=== PATIENT | female | born 1975 | race Two or more races ===

== ENCOUNTER 2018-12-05 19:51 | Emergency (ER) | payer MEDICAID, SELFPAY ==
[2018-12-05] MEDS: 0.9% Normal Saline 1,000 ML 1000 ML IV (20:20)
[2018-12-05] MEDS: Ondansetron 4 MG/2 ML Vial IV (20:22)
[2018-12-05] MEDS: Morphine 4 MG/ML Syringe IV (20:22)
[2018-12-05 20:40] VITALS: PULSE 85; RESP 18; TEMP 37.1; O2SAT 98; BMI 24.7
[2018-12-05 20:47] LABS: Absolute Lymphocyte Count 2.16 X10^3/ul (0.83-4.51); Absolute Neutrophil Count 8.2 X10^3/uL (2.0-7.7); Basophil# 0.01 X10^3/uL; Basophil% 0.1 % (0-1); Eosinophil# 0.04 X10^3/uL; Eosinophils% 0.4 % (0-5); Hematocrit 40.1 % (37-47); Hemoglobin 13.4 g/dl (12.0-15.0); Lymphocyte # 2.16 X10^3/ul (4.0); Lymphocyte % 19.9 % (19-41); Mean Corp Hgb Conc 33.4 g/gl (32-36); Mean Corpuscular Hgb 31.5 pg (27.0-32.0); Mean Corpuscular Volume 94.1 fL (81-99); Mean Platelet Vol. 11.8 fl (6.2-12.0); Monocyte# 0.46 X10^3/uL; Monocyte% 4.2 % (0-10); Neutrophil # 8.17 X10^3/uL (2.7-7.7); Neutrophil % 75.1 % (47-70); POSITIVE COUNT NO; POSITIVE DIFFERENTIAL NO; POSITIVE MORPHOLOGY NO; Platelet Count 197 K/mm3 (150-450); RBC Distribution Width CV 12.7 % (11.6-14.6); RBC Distribution Width SD 43.1 fl (35.1-43.9); Red Blood Count 4.26 M/mm3 (4.2-5.4); White Blood Count 10.9 K/mm3 (4.4-11.0)
--- NOTE | 2018-12-05 20:55 | ED.VISSUMM ---
- ER Visit Summary Date of Service: 12/05/18 Chief Complaint: Vaginal bleeding History of Present Illness: The patient is a 44 F who speaks only Japanese. All conversation is through an seismic interpreter. However, there is still a language barrier present. She reports that she has vaginal bleeding that began 3 days ago. However, it became much more heavy tonight at work. She complains of an aching suprapubic pain that is 10 out of 10 in severity. It is worsened by nothing and relieved by nothing. Patient reports that she is a and her last menstrual period was 3 months ago. She does report that she has a housekeeper cleaning cooking. However I am unable to obtain this person's name. Physical Examination: Vitals: Stable. Afebrile. General: Well-nourished and well-developed. Head: Normocephalic atraumatic. Neck: Supple, no lymphadenopathy. No JVD. Nontender. Cardiovascular: Regular rate and rhythm. No murmurs. Respiratory: No respiratory distress. Clear to auscultation bilaterally. Abdominal: Soft, moderate suprapubic tenderness to palpation, nondistended, normal bowel sounds. No guarding, rebound, or peritoneal signs. Back: Nontender. Extremities: Nontender, no edema. Skin: Normal color, no rash. Neurologic: Alert and oriented ?3. Cranial nerves II through XII are intact. Normal strength and sensation. Psych: Normal affect. Test Results: CBC is remarkable for an H&H of 13.4 and 40.1. Segmented neutrophils are 75. Blood type is B+. Quant is 2466. Transvaginal ultrasound shows no intrauterine . No gestational sac. Normal adnexa bilaterally. Emergency Department Course and Treatment: Patient had an IV placed. She was given a liter of normal saline. She was given a dose of morphine IV. She is resting comfortably. Treatment Plan: The patient was discussed with Dr. Price. She reports that there office does have access to a Japanese pensionholder information clerk and that they will call the patient tomorrow and set up follow-up. I discussed this with the patient. She actually has coworkers with her now who speak Czech. She lives in [place]. I gave her a printout of her labs and her ultrasound. I have instructed her that she needs to get a repeat quant in 2 days and that if this is decreasing then she has had a miscarriage. If it is staying the same or increasing then she may have an ectopic and will require an ultrasound. She does understand this per seismic interpreter. Disposition: To home in improved and stable condition. Impression: 1. Vaginal bleeding. 2. . This note was generated with [employer] software. It may contain incorrect words, spelling, and punctuation that were not noted in review of the chart prior to signing ED Disposition - Plan for ED Patient: Chief Complaint: Vag Bleeding Instructions: ED Miscarriage Inevitable Referrals: Romina Price [STAFF PHYSICIAN] - 2 Days
[2018-12-05 21:00] LABS: Anion Gap 9 (5-15); BUN 15 mg/dL (7-18); BUN/Creat Ratio 21.7 RATIO (10-20); Calcium,Total 9.2 mg/dL (8.5-10.1); Chloride 106 mmol/L (98-107); Creatinine, Serum 0.69 mg/dL (0.55-1.02); Estimated Creatinine Clearance 76.29 ml/min; Glucose 120 mg/dL (74-106); Potassium 3.5 mmol/L (3.5-5.1); Sodium Level 139 mmol/L (136-145)
--- NOTE | 2018-12-05 21:12 | US_ITS ---
STUDY: FIRST TRIMESTER OBSTETRICAL ULTRASOUND REASON FOR EXAM: Female, 43 years old. Bleeding and cramping LMP: Unknown TECHNIQUE: Transabdominal and Transvaginal TECHNICAL QUALITY: Adequate. PRIOR ULTRASOUND: None. FINDINGS: No gestational sac visualized. The endometrium measures 16 mm. It appears heterogeneous. No retained products noted. The uterus measures 8.3 x 6.1 x 5 cm. There is no demonstrated uterine fibroid. The cervix is closed. The right ovary measures 2.6 x 1.5 x 1.3 cm. There is no right ovarian cyst. There is no visualized right adnexal mass or complex lesion. The left ovary measures 2.4 x 1.6 x 1.2 cm. There is no left ovarian cyst. There is no visualized left adnexal mass or complex lesion. There is no fluid in the cul de sac. US/Transvaginal w/Preg US IMPRESSION: No intrauterine . Differential considerations include early intrauterine , missed AB, or ectopic . Close surveillance required. Electronically Signed: Ernie Hernandez MD at 22:50 EST , Service support ,
[2018-12-05 21:45] LABS: Pregnancy, Serum, hCG Quali. POSITIVE Negative (0-9 Nonpreg)
[2018-12-05 21:47] LABS: hCG Titer Quant., Serum 2466 mIU/mL (<9 non-preg)
[2018-12-05] MEDS: Ibuprofen 200 MG Tablet 400 MG PO (23:46)
[2018-12-05 23:47] VITALS: RESP 18; O2SAT 98
--- OUTSIDE RECORDS SUMMARY | 2019-02-09 12:52 | XMS RPT_ITS ---
:1975 Author Organization OHIP Care Team Providers Name Role Phone Katelin Motnejo Referring Unavailable Nikia, Katelin Primary Care Unavailable Kin, Isac Attending Unavailable Nikia, Katelin Attending Unavailable Nikia, Katelin Referring Unavailable Nikia, Katelin Primary Care Unavailable Nikia, Katelin Attending Unavailable Nikia, Katelin Referring Unavailable Nikia, Katelin Primary Care Unavailable NikiaKatelin Attending Unavailable Nikia, Katelin Referring Unavailable Nikia, Katelin Primary Care Unavailable Raj Jo Attending Unavailable Primay Care Physicia, No Primary Care Unavailable PROBLEMS PROBLEMS DATE TYPE CONDITION / CODE ATTENDING STATUS SOURCE 12/06/2018 Admitting Complete or unsp Kin, Active [facility] Diagnosis spontaneous Isac System without complication Repository / O03.9(ICD-10) 12/06/2018 Admitting Other chronic pain / Kin, Active [facility] Diagnosis G89.29(ICD-10) [facility] System Repository 12/06/2018 Admitting Low back pain / Kin, Active [facility] Diagnosis M54.5(ICD-10) [facility] System Repository 12/06/2018 Admitting Essential (primary) Kin, Active [employer] Diagnosis hypertension / [facility] System I10(ICD-10) Repository 12/06/2018 Admitting Personal history of Kin, Active [employer] Diagnosis nicotine dependence / [facility] System Z87.891(ICD-10) Repository 12/06/2018 Admitting Oth related Kin, [employer] Diagnosis conditions, Isac System unspecified trimester Repository / O26.899(ICD-10) 04/25/2018 Admitting Chest pain, Katelin Montejo Active [employer] Diagnosis unspecified / System R07.9(ICD-10) Repository 01/15/2018 Admitting Other disturbances of Katelin Montejo Active [employer] Diagnosis skin sensation / System R20.8(ICD-10) Repository 01/15/2018 Admitting Encounter for Katelin Montejo [employer] Diagnosis screening for human System immunodeficiency Repository virus / Z11.4(ICD-10) 01/15/2018 Admitting Encounter for Kaetlin Montejo [employer] Diagnosis screening for lipoid System disorders / Repository Z13.220(ICD-10) PROCEDURES PROCEDURES No Procedure Records FoundRESULTS RESULTS US Observed: 12/06/2018 Status: F Source: [facility] TRANSVAGINAL 11:34 AM SYSTEM REPOSITORY Patient Name: GELACIO BALDERAS Ultrasound Exam Date/Time 12/06/2018 11:09:48 EST Exam US Transvaginal Ordering Physician MARIA L VU LAURA Accession Number [id number] CPT4 Codes 34896 () Reason For Exam threatened AB Report Indication: Threatened . Vaginal bleeding and . FINDINGS: Transvaginal sonography performed. Uterus measures 10.1 x 4.2 x 5.8 cm, anteverted. No intrauterine visualized. Enlarged heterogeneous endometrium 18 mm. No free fluid. Both ovaries have Doppler flow signal. No ovarian mass. Right ovary 2.9 x 1.8 x 1.1 cm and left ovary 1.9 x 1.0 x 1.8 cm. IMPRESSION: Enlarged 13 mm endometrium. No definite intrauterine . Please correlate with laboratory values. This patient may require follow-up or further evaluation depending on the clinical setting. Report Dictated on Final Dictated: 12/06/2018 11:34 am Dictating Physician: MD TORRES JOHN Signed Date and Time: 12/06/2018 11:35 am Signed by: MD TORRES JOHN Transcribed Date and Time: 12/06/2018 11:34 HEMOGRAM W/ AUTODIFF Collected: 12/06/2018 Status: F Source: [facility] 9:55 AM SYSTEM REPOSITORY TYPE CODE TESTS RESULT OUT OF REFERENCE UNITS RANGE LAB IWBC 3.6-10.7 10*3/uL WBC Normal 7.0 LAB RBC 3.80-5.20 10*6/uL RBC Normal 3.94 LAB HGB 11.7-16.0 g/dL Hemoglobin Normal 12.6 LAB HCT 35.0-47.0 % Hematocrit Normal 37.1 LAB MCV 79.0-98.0 fL MCV Normal 94.2 LAB MCH 26.0-34.0 pg MCH Normal 32.0 LAB MCHC 32.0-36.0 % MCHC Normal 34.0 LAB RDW 11.5-14.5 % RDW Normal 13.1 LAB PLT 140-440 10*3/uL Platelet Normal 185 LAB MPV 7.4-10.4 fL MPV High 10.5 LAB GRAN% 40.0-80.0 % Granulocytes Normal 60.0 LAB LYMP% 20.0-40.0 % Lymphocytes Normal 34.7 LAB MONO% 2.0-10.0 % Monocytes Normal 4.2 LAB EOS% 1.0-6.0 % Low Eosinophils 0.6 LAB BAS% 0.0-2.0 % Basophils Normal 0.5 LAB ANC 1.8-7.0 10*3/uL Abs Normal Neutrophile Cnt 4.2 LAB ALC 1.0-4.3 10*3/uL Abs Lymph Cnt Normal 2.4 LAB AMC 0.0-0.8 10*3/uL Abs Monocyte Normal Cnt 0.3 LAB AEC 0.0-0.5 10*3/uL Abs Eosin Cnt Normal 0.0 LAB ABC 0.0-0.2 10*3/uL Abs Baso Cnt Normal 0.0 Performed By: #### HEMDF, CMP3, QWNT #### [facility] [address] [place] [phone] COMP METABOLIC PANEL Collected: 12/06/2018 Status: F Source: [facility] 9:55 AM SYSTEM REPOSITORY TYPE CODE TESTS RESULT OUT OF RANGE REFERENCE UNITS LAB NA3 135-145 mmol/L Sodium Normal 141 LAB K3 3.5-5.1 mmol/L Normal Potassium 3.7 LAB CL3 98-107 mmol/L High Chloride 110 LAB CO23 22-30 mmol/L Carbon Normal Dioxide 23 LAB ANIN3 NA Anion Gap 8 LAB GLUC3 70-100 mg/dL High Glucose 115 LAB BUN3 7-20 mg/dL Urea Normal Nitrogen 9 LAB CRET3 0.52-1.25 mg/dL Normal Creatinine 0.57 LAB GF3BR >60 mL/min eGFR > 60.0 LAB GF3WR >60 mL/min eGFR OTHER > 60.0 Result Comment: Source- MDRD equation with creatinine calibration to IDMS(NKDEP) eGFR not recommended for drug dose adjustment LAB CA3 8.4-10.4 mg/dL Calcium Normal 8.8 LAB ALB3 3.5-5.0 g/dL Albumin, Serum Normal 4.0 LAB TP3 6.3-8.2 g/dL Total Protein Normal 7.1 LAB BILT3 0.2-1.3 mg/dL Normal Bilirubin,Total 0.4 LAB ALKP3 38-126 U/L Alkaline Normal Phosphatase 68 LAB ALT3 13-69 U/L ALT (SGPT) Normal 29 LAB AST3 15-46 U/L AST (SGOT) Normal 20 Performed By: #### HEMYULIET CMP3, QWNT #### [facility] [address] [place] [phone] HCG QUANTITATIVE Collected: 12/06/2018 Status: F Source: [facility] 9:55 AM SYSTEM REPOSITORY TYPE CODE TESTS RESULT OUT OF RANGE REFERENCE UNITS LAB 3QWNT < 3 m[IU]/mL hCG Abnormal Quantitative 1200 Performed By: #### HEMDF, CMP3, QWNT #### [facility] [address] [place] [phone] URINALYSIS,MACRO Collected: 12/06/2018 Status: F Source: [facility] 9:55 AM SYSTEM REPOSITORY TYPE CODE TESTS RESULT OUT OF REFERENCE UNITS RANGE LAB APPUR Clear NA Appearance clear LAB COLUR Lt. Yellow NA Color red LAB USG 1.005-1.030 NA Low Specific Buena,Urine 1.000 LAB UPH 5.0-8.0 NA pH,Urine Normal 7.0 LAB ULUK Negative NA Leukocytes Trace LAB UNIT Negative NA Nitrites NEG LAB UPRO Negative mg/dL Total Protein,Urine 75 LAB UGLU Negative mg/dL Glucose,Urine NORM LAB UKET Negative mg/dL Ketone,Urine NEG LAB UURO 0-1 mg/dL Urobilinogen NORM LAB UBIL Negative NA Bilirubin,Ur NEG LAB UBLD Negative {RBC}/uL Occult Blood,Ur 250 Performed By: #### UAMAC, UAMIC #### [facility] [address] [phone] URINALYSIS,MICROSCOPIC Collected: Status: F Source: [facility] 12/06/2018 9:55 AM HEALTH SYSTEM REPOSITORY TYPE CODE TESTS RESULT OUT OF REFERENCE UNITS RANGE LAB VOLUR NA Volume,Urine 8-12 ml LAB WBCU 0-5 /[HPF] 3 WBC,Urine - 5 LAB RBCU 0-2 /[HPF] 3 RBC,Urine - 5 LAB EPIU 3-5 /[HPF] 3 Epithelial Cells - 5 LAB ALISON Negative NA Bacteria Moderate (6-50) Performed By: #### UAMAC, UAMIC #### [facility] [employer] [address] [phone] Observed: 12/06/2018 Status: F Source: [facility] ABO RH BLOOD TYPE 9:55 AM SYSTEM REPOSITORY ABO Group: B Rh, Gel: POS Performed By: #### ABORH #### [place] [address] ED PROVIDER NOTE Observed: 12/06/2018 Status: F Source: [facility] [employer] 9:11 AM SYSTEM REPOSITORY Emergency Department Encounter [facility] EMERGENCY DEPT Patient: Gelacio Balderas : 1975 Date of Evaluation: 12/06/2018 ED Supervising Physician: Isac Sanderson MD I independently examined and evaluated Gelacio Balderas. In brief, Gelacio Balderas is a 43 y.o. female that presents to the emergency department with vaginal bleeding. Patient was seen yesterday and diagnosed with possible versus ectopic. Patient had worsening pain today so coming in again. Focused exam: Patient's awake alert well-appearing. Vaginal exam per mid-level provider note. Abdomen benign. Brief ED course/MDM: 43-year-old presenting with miscarriage versus ectopic . Patient's vitals are stable. Her abdomen is benign. Her Quant is down by approximately 50% compared to yesterday's documentation. Transvaginal sonogram today shows no definitive IUP but also no signs of ruptured ectopic. Given normal vitals and normal abdominal exam and no free fluid on ultrasound very low suspicion for ruptured ectopic. Cannot completely rule out an ectopic however. Discussed case with OB on-call who will put patient listed have her follow-up with on Sunday for repeat quantitative and ultrasound potentially. Return precautions for worsening pain to signify ruptured ectopic given. Patient stable for discharge All diagnostic, treatment, and disposition decisions were made by myself in conjunction with the [facility]. For all further details of the patient's emergency department visit, please see their documentation. (Please note that portions of this note may have been completed with a voice recognition program. Efforts were made to edit the dictations but occasionally words are mis-transcribed.) Isac Sanderson MD [facility] Isac Sanderson MD 12/06/18 1243 ED PROVIDER NOTE Observed: 12/06/2018 Status: F Source: [facility] 9:11 AM SYSTEM REPOSITORY [facility] EMERGENCY DEPT eMERGENCY dEPARTMENT eNCOUnter Pt Name: Gelacio Balderas Birthdate 1975 Date of evaluation: 12/06/2018 Provider: Irlanda Vu, RN MENTAL HEALTH - TRANSPORT NURSE This patient was evaluated under the supervision of Dr. Sanderson CHIEF COMPLAINT Chief Complaint Patient presents with ? Abdominal Pain Pt seem at [facility] for misscarriage, pt cont to haver ABD pain and vag bleeding. HISTORY OF PRESENT ILLNESS (Location/Symptom, Timing/Onset,Context/Setting, Quality, Duration, Modifying Factors, Severity) Note limiting factors. HPI Gelacio Balderas is a 43 y.o. female who presents to the emergency department Via private vehicle with complaint of vaginal bleeding and abdominal cramping that she rates as a 6 out of 10. She reports that her cramping is intermittent, nonradiating. She denies any aggravating or alleviating factors. She has not taken anything for the pain prior to arrival. The patient is Turkish speaking, and has a visitor at the bedside as an science interpreter. Coupon Collection Clerk phone was offered, patient's visitor declined. Visitor states that she was at a [facility] yesterday where she was diagnosed with a possible care and was told to come to the emergency department if her symptoms worsened. The ultrasound report that she brought with her from yesterday shows no intrauterine . Differential considerations include early intrauterine , missed AB, or ectopic . Close surveillance is required. Her quantitative hCG yesterday was 2466. She denies chest pain, shortness of breath, nausea, vomiting, fever, chills, change in bowel or bladder habits. She reports that she is not saturating more than 1 pad per hour. Her last menstrual period was the middle of October per her visitor. Her past medical history includes hypertension and chronic low back pain. Her past surgical history includes a dilation and curettage. She is a former smoker, denies alcohol use, denies illicit drug use. Her family states that this is her third and she has had 3 babies, however, she has a dilation and curettage in her past surgical history. Nursing Notes were reviewed. REVIEW OFSYSTEMS (2+ for level 4; 10+ for level 5) Review of Systems Constitutional: Negative for chills, fatigue and fever. HENT: Negative for congestion, ear pain, rhinorrhea, sneezing and sore throat. Eyes: Negative for visual disturbance. Respiratory: Negative for cough and shortness of breath. Cardiovascular: Negative for chest pain and leg swelling. Gastrointestinal: Negative for abdominal pain, nausea and vomiting. Endocrine: Negative for cold intolerance and heat intolerance. Genitourinary: Positive for pelvic pain and vaginal bleeding. Negative for difficulty urinating, dysuria and urgency. Musculoskeletal: Negative for myalgias and neck pain. Skin: Negative for pallor and rash. Allergic/Immunologic: Negative for environmental allergies. Neurological: Negative for dizziness, light-headedness and headaches. Hematological: Does not bruise/bleed easily. Psychiatric/Behavioral: Negative for confusion and sleep disturbance. PAST MEDICAL HISTORY Past Medical History: Diagnosis Date ? Chronic low back pain ? HTN (hypertension) diagnosed in [facility] SURGICAL HISTORY Past Surgical History: Procedure Laterality Date ? DILATION AND CURETTAGE CURRENT MEDICATIONS Discharge Medication List as of 12/06/2018 12:16 PM CONTINUE these medications which have NOT CHANGED Details omeprazole (PRILOSEC) 40 MG delayed release capsule Take 1 capsule by mouth daily, Disp-30 capsule, R-5Normal gabapentin (NEURONTIN) 100 MG capsule Take 1 capsule by mouth nightly.., Disp-30 capsule, R-5Normal Multiple Vitamins-Minerals (MULTIVITAMIN WITH MINERALS) tablet Take 1 tablet by mouth daily, Disp-30 tablet, R-6Normal meclizine (ANTIVERT) 25 MG tablet TAKE 1 TABLET EVERY DAY NEEDED for dizziness, Disp-30 tablet, R-4Normal TRI FEMYNOR 0.18/0.215/0.25 MG-35 MCG TABS TAKE 1 TABLET BY MOUTH EVERY DAY, Disp-28 tablet, R-6Normal ALLERGIES Patient has no known allergies. FAMILY HISTORY Family History Problem Relation Age of Onset ? High Blood Pressure Mother SOCIAL HISTORY Social History Social History ? Marital status: Spouse name: N/A ? Number of children: N/A ? Years of education: N/A Social History Main Topics ? Smoking status: Former Smoker Years: 25.00 Types: Cigarettes Quit date: 2015 ? Smokeless tobacco: Never Used Comment: quit smoking over a year ago ? Alcohol use No ? Drug use: No ? Sexual activity: Not Asked Other Topics Concern ? None Social History Narrative ? None SCREENINGS PHYSICAL EXAM (up to 7 for level 4, 8 or more for level 5) ED Triage Vitals [12/06/18 0945] BP Temp Temp Source Pulse Resp SpO2 Height Weight 121/77 98.3 ?F (36.8 ?C) Oral 77 16 100 % 4' 8 (1.422 m) 110 lb (49.9 kg) Physical Exam Constitutional: She is oriented to person, place, and time. She appears well-developed and well-nourished. No distress. HENT: Head: Normocephalic and atraumatic. Eyes: No scleral icterus. Neck: Normal range of motion. Cardiovascular: Normal rate, regular rhythm, normal heart sounds and intact distal pulses. Exam reveals no gallop and no friction rub. No murmur heard. Pulmonary/Chest: Effort normal and breath sounds normal. No respiratory distress. She has no wheezes. She has no rales. She exhibits no tenderness. Abdominal: Soft. There is no tenderness. Genitourinary: There is bleeding in the vagina. No erythema or tenderness in the vagina. No foreign body in the vagina. No signs of injury around the vagina. No vaginal discharge found. Genitourinary Comments: Cervix is closed, however, there is bleeding from the os, no clots noted Musculoskeletal: Normal range of motion. Neurological: She is alert and oriented to person, place, and time. Skin: Skin is warm and dry. Capillary refill takes less than 2 seconds. She is not diaphoretic. Psychiatric: She has a normal mood and affect. Her behavior is normal. DIAGNOSTIC RESULTS EKG (Per Emergency Physician): RADIOLOGY (Per Emergency Physician): Interpretation per the Radiologist below, if available at the time of this note: Us Ob Transvaginal Result Date: 12/06/2018 Patient Name: GELACIO BALDERAS ---Ultrasound--- Exam Date/Time 12/06/2018 11:09:48 EST Exam US Transvaginal Ordering Physician MARIA L VU LAURA Accession Number [id number] CPT4 Codes 65499 () Reason For Exam threatened AB Report Indication: Threatened . Vaginal bleeding and . FINDINGS: Transvaginal sonography performed. Uterus measures 10.1 x 4.2 x 5.8 cm, anteverted. No intrauterine visualized. Enlarged heterogeneous endometrium 18 mm. No free fluid. Both ovaries have Doppler flow signal. No ovarian mass. Right ovary 2.9 x 1.8 x 1.1 cm and left ovary 1.9 x 1.0 x 1.8 cm. IMPRESSION: Enlarged 13 mm endometrium. No definite intrauterine . Please correlate with laboratory values. This patient may require follow-up or further evaluation depending on the clinical setting. Report Dictated on --- Final --- Dictated: 12/06/2018 11:34 am Dictating Physician: MD TORRES JOHN Signed Date and Time: 12/06/2018 11:35 am Signed by: MD TORRES JOHN Transcribed Date and Time: 12/06/2018 11:34 ED BEDSIDE ULTRASOUND: Performed by ED Physician - none LABS: Labs Reviewed CBC WITH AUTO DIFFERENTIAL - Abnormal; Notable for the following: Result Value MPV 10.5 (*) Eosinophils 0.6 (*) All other components within normal limits Narrative: [facility], [address] [place] [address] COMPREHENSIVE METABOLIC PANEL - Abnormal; Notable for the following: Chloride 110 (*) Glucose 115 (*) All other components within normal limits Narrative: Test Performed by [facility], [address] [place] [address] HCG, QUANTITATIVE, - Abnormal; Notable for the following: hCG Quant 1200 (*) All other components within normal limits Narrative: [facility] by [facility], [address] [place] [address] URINALYSIS - Abnormal; Notable for the following: Specific Buena, Urine 1.000 (*) All other components within normal limits Narrative: [place] [address] URINALYSIS WITH MICROSCOPIC Narrative: [facility] [place] [address] ABO/RH Narrative: Test [facility] [address] All other labs were within normal range or not returned as of this dictation. EMERGENCY DEPARTMENT COURSE and DIFFERENTIAL DIAGNOSIS/MDM: Vitals: Vitals: 12/06/18 0945 12/06/18 1207 BP: 121/77 137/82 Pulse: 77 84 Resp: 16 16 Temp: 98.3 ?F (36.8 ?C) TempSrc: Oral SpO2: 100% 98% Weight: 49.9 kg (110 lb) Height: 4' 8 (1.422 m) Medications morphine (PF) injection 4 mg (4 mg Intravenous Given 12/06/18 1034) ondansetron (ZOFRAN) injection 4 mg (4 mg Intravenous Given 12/06/18 1034) MDM. Her past medical history, past surgical history, and history of present illness were obtained from the patient herself, her visitor who is at bedside, nursing staff, paperwork sent from the previous hospital, and through chart review. IV access was established, basic lab work will be obtained, as well as an ABO/Rh, quantitative hCG. Transvaginal ultrasound will also be repeated due to her increased pain to check for retained products of conception. She will be given formula grams of Zofran and 4 mg of morphine. Labwork does not reveal any evidence of leukocytosis. Her hemoglobin is stable at 12.6. There is no evidence of renal insufficiency. LFTs are within normal limits. Glucose is 115. Quantitative hCG is 1200, which is essentially half of what it was yesterday. Urinalysis shows trace leukocytes with moderate bacteria and 3-5 epithelial cells. The patient denies any urinary symptoms. Her blood type is B+, so there is no need for Rhogam. Transvaginal ultrasound was interpreted by the radiologist and read by myself. Ultrasound reveals enlarged 13 mm endometrium. No definite intrauterine . Correlate with laboratory values. This patient may require follow-up for further evaluation depending on the clinical setting. I did discuss this case with the [facility] residents, who stated that they would put a telephone counter in the computer and have someone from the [facility] contact this patient on Sunday. She does not appear toxic or septic. She remained stable throughout her course in the emergency department. She will be discharged home in stable condition with a prescription for ibuprofen. She was also given the phone number to the [facility], and was instructed to call on Sunday if she did not hear from them by lunchtime. She verbalized understanding. She was instructed to return to the emergency department for any new or worsening symptoms. She was given strict return precautions and given pelvic rest precautions. All of her questions were answered to the best of my ability. Gelacio presents with concern for possible miscarriage, due to the pain and or bleeding that she presented with. Her evaluation today does reveal evidence of her being . At this time there is no evidence of an ectopic or obvious demise. As such, and because of her symptoms, she will be diagnosed as a threatened miscarriage. She is told to be at pelvic rest and minimize any exertion as we discussed. I explained to her that I would like her rechecked within 48-72 hours either back in our ED or with her engineering director. She will likely need reevaluation including the possibility of a repeat quantitative hCG, and possibly another US, and/or other diagnostics as deemed warranted by the physician at that time. I also discussed with her the possibility of ectopic, as well as failed , and told her to return immediately if she has increasing pain, increasing bleeding, lightheadedness, passing out, fever, or any other symptoms that arise. REVAL: 1209 She reports improvement in symptoms CRITICAL CARE TIME Total CriticalCare time was 0 minutes, excluding separately reportable procedures. There was a high probability of clinically significant/life threatening deterioration in the patient's condition which required my urgent intervention. CONSULTS: None PROCEDURES: Unless otherwise noted below, none Procedures FINAL IMPRESSION 1. Miscarriage 2. Vaginal bleeding DISPOSITION/PLAN DISPOSITION Decision To Discharge 12/06/2018 12:13:38 PM PATIENT REFERRED TO: [facility] [address] [facility] [phone] Call in 3 days DISCHARGE MEDICATIONS: Discharge Medication List as of 12/06/2018 12:16 PM (Please note: Portions of this note were completed with a voice recognition program.Efforts were made to edit the dictations but occasionally words and phrases are mis-transcribed.) Form [id number] @@ (electronically signed) Emergency Medicine Provider Irlanda Vu APRN - IVON 12/06/18 1239 EMERGENCY DEPARTMENT Observed: 12/06/2018 Status: F Source: [facility] SUMMARY 12:[address] [facility] REPOSITORY [facility] Medical Records Department [address] [place] [address] Emergency Department Summary 12/05/182054 MR#: [id number] Acct: [id number] Name: GELACIO BALDERAS Rep #: [id number] : 1975 43 From: Raj Jo MD PCP: Care Physician, No Primary Status: DEP ER - ER Visit Summary Date of Service: 12/05/18 Chief Complaint: Vaginal bleeding History of Present Illness: The patient is a 44 F who speaks only Libyan. All conversation is through an science interpreter. However, there is still a language barrier present. She reports that she has vaginal bleeding that began 3 days ago. However, it became much more heavy tonight at work. She complains of an aching suprapubic pain that is 10 out of 10 in severity. It is worsened by nothing and relieved by nothing. Patient reports that she is a and her last menstrual period was 3 months ago. She does report that she has a slot key person. However I am unable to obtain this person's name. Physical Examination: Vitals: Stable. Afebrile. General: Well-nourished and well-developed. Head: Normocephalic atraumatic. Neck: Supple, no lymphadenopathy. No JVD. Nontender. Cardiovascular: Regular rate and rhythm. No murmurs. Respiratory: No respiratory distress. Clear to auscultation bilaterally. Abdominal: Soft, moderate suprapubic tenderness to palpation, nondistended, normal bowel sounds. No guarding, rebound, or peritoneal signs. Back: Nontender. Extremities: Nontender, no edema. Skin: Normal color, no rash. Neurologic: Alert and oriented 3. Cranial nerves II through XII are intact. Normal strength and sensation. Psych: Normal affect. Test Results: CBC is remarkable for an H AND H of 13.4 and 40.1. Segmented neutrophils are 75. Blood type is B+. Quant is 2466. Transvaginal ultrasound shows no intrauterine . No gestational sac. Normal adnexa bilaterally. Emergency Department Course and Treatment: Patient had an IV placed. She was given a liter of normal saline. She was given a dose of morphine IV. She is resting comfortably. Treatment Plan: The patient was discussed with Dr. Price. She reports that there office does have access to a [place] livestock judging coach and that they will call the patient tomorrow and set up follow-up. I discussed this with the patient. She actually has coworkers with her now who speak Eritrean. She lives in [place]. I gave her a printout of her labs and her ultrasound. I have instructed her that she needs to get a repeat quant in 2 days and that if this is decreasing then she has had a miscarriage. If it is staying the same or increasing then she may have an ectopic and will require an ultrasound. She does understand this per science interpreter. Disposition: To home in improved and stable condition. Impression: 1. Vaginal bleeding. 2. . This note was generated with [employer] software. It may contain incorrect words, spelling, and punctuation that were not noted in review of the chart prior to signing ED Disposition - Plan for ED Patient: Chief Complaint: Vag Bleeding Instructions: ED Miscarriage Inevitable Referrals: Romina Price [STAFF PHYSICIAN] - 2 Days What to do if you have Problems For any increased pain, shortness of breath, bleeding, nausea or vomiting, chest pain, or any unexpected problems, contact your Primary Care Provider. Call [facility] ([phone]) or report to the closest Emergency Room. Call 911 if necessary. 12/06/18 0013 <Electronically signed by Raj Jo MD> Date Raj Jo MD Cosigner Signature (If Indicated): Date CC: No Primary Care Physician TRANSVAGINAL W/PREG US Observed: 12/05/2018 Status: F Source: OURAY 9:[address] [facility] REPOSITORY [facility] Imaging Services [address] [place] [address] Transvaginal w/Preg US MR#: [id number] Acct: [id number] Name: GELACIO BALDERAS Rep #: [id number] : 1975 F 43 From: Ernie Hernandez MD PCP: Care Physician, No Primary Status: REG ER Study: Transvaginal w/Preg US Date of Exam: 12/05/18 Exam# [id number] Ordering Dr: Raj Jo MD STUDY: FIRST TRIMESTER OBSTETRICAL ULTRASOUND REASON FOR EXAM: Female, 43 years old. Bleeding and cramping LMP: Unknown TECHNIQUE: Transabdominal and Transvaginal TECHNICAL QUALITY: Adequate. PRIOR ULTRASOUND: None. FINDINGS: No gestational sac visualized. The endometrium measures 16 mm. It appears heterogeneous. No retained products noted. The uterus measures 8.3 x 6.1 x 5 cm. There is no demonstrated uterine fibroid. The cervix is closed. The right ovary measures 2.6 x 1.5 x 1.3 cm. There is no right ovarian cyst. There is no visualized right adnexal mass or complex lesion. The left ovary measures 2.4 x 1.6 x 1.2 cm. There is no left ovarian cyst. There is no visualized left adnexal mass or complex lesion. There is no fluid in the cul de sac. US/Transvaginal w/Preg US IMPRESSION: No intrauterine . Differential considerations include early intrauterine , missed AB, or ectopic . Close surveillance required. Electronically Signed: Ernie Hernandez MD at 22:50 EST , Service support , CC: No Primary Care Physician; Raj Jo MD Associate Partner: Signed CBC W/DIFF, AUTOMATED Collected: 12/05/2018 Status: F Source: [place]IE 8:[address] [facility] REPOSITORY TYPE CODE TESTS RESULT OUT OF RANGE REFERENCE UNITS LAB L100.1000 4.4-11.0 K/mm3 Normal WBC 10.9 LAB L100.1200 4.2-5.4 M/mm3 Normal RBC 4.26 LAB L100.1300 12.0-15.0 g/dl Normal HGB 13.4 LAB L100.1400 37-47 % Normal HCT 40.1 LAB L100.1500 81-99 fL Normal MCV 94.1 LAB L100.1600 27.0-32.0 pg Normal MCH 31.5 LAB L100.1700 32-36 g/gl Normal MCHC 33.4 LAB L100.1810 11.6-14.6 % Normal RDW CV 12.7 LAB L100.1820 35.1-43.9 fl Normal RDW SD 43.1 LAB L100.1900 150-450 K/mm3 Normal PLT 197 LAB L100.2000 6.2-12.0 fl Normal MPV 11.8 LAB L100.2100 47-70 % High NEUT% 75.1 LAB L100.2200 19-41 % Normal LY% 19.9 LAB L100.2300 0-10 % Normal MONO% 4.2 LAB L100.2400 0-5 % Normal EO% 0.4 LAB L100.2500 0-1 % Normal BASO% 0.1 LAB L100.2550 0.0-0.9 % Normal IM GRAN % 0.300 Result Comment: IG% - Immature Granulocytes (promyelocytes, myelocytes and metamyelocytes) > 1% indicates that a LEFT SHIFT is Present. LAB L100.2620 2.0-7.7 X10 3/uL High Absolute Neut 8.2 LAB L100.2720 0.83-4.51 X10 3/ul Normal Absolute Lymph 2.16 Performed By: #### L100.0100 #### [facility] [address] [place], [place], [address] BASIC METABOLIC Collected: 12/05/2018 Status: F Source: [facility] PROFILE (BMP) 8:[address] [facility] REPOSITORY TYPE CODE TESTS RESULT OUT OF RANGE REFERENCE UNITS LAB L501.0100 74-106 mg/dL High GLU 120 Result Comment: Fasting Glucose result from 100 to 125 mg/dL suggests IMPAIRED HOMEOSTASIS per A.D.A. criteria. Please note revised GLUCOSE reference range effective 2017. LAB L501.1000 7-18 mg/dL Normal BUN 15 LAB L501.1100 0.55-1.02 mg/dL Normal CREAT,SERUM 0.69 Result Comment: The validity of the calculated GFR AND GFRAA in patients over 70 years has not been determined. Clinical correlation is essential. LAB L501.1110 >60 mL/min Test not Normal performed EST GFR Result Comment: Non- GFR Calc LAB L501.1115 >60 mL/min Test not Normal performed EST GFR - AA Result Comment: GFR Calc LAB L501.1255 ml/min Normal Estimated CRCL 76.29 LAB L501.1300 10-20 RATIO High BUN/CRE 21.7 LAB L501.2200 8.5-10 mg/dL Normal .1 CA 9.2 LAB L501.5300 136-14 mmol/L Normal 5 NA 139 LAB L501.5600 3.5-5. mmol/L Normal 1 K 3.5 LAB L501.5900 98-107 mmol/L Normal CL 106 LAB L501.6100 21.0-3 mmol/L Normal 2.0 CO2 24.0 LAB L501.6200 5-15 Normal GAP 9 Performed By: #### L500.2500 #### [facility] [address] [place], [place], [address] ABO RH BLOOD TYPE, Collected: 12/05/2018 Status: F Source: [place] PATIENT 8:[address] [facility] REPOSITORY TYPE CODE TESTS RESULT OUT OF RANGE REFERENCE UNITS LAB B10.0800 B Normal BLOOD POSITIVE TYPE GEL Performed By: #### B10.0010 #### [facility] [address] [place], [address] ,SERUM,HCG QUALI. Collected: Status: F Source: STEPHANIE 12/05/2018 8:[address] [facility] REPOSITORY TYPE CODE TESTS RESULT OUT OF REFERENCE UNITS RANGE LAB L700.6700 =>Qualitative mIU/mL Normal HCG Qual 2466 triggr LAB L700.7000 0-9 Nonpreg Negative High HCGSQUAL POSITIVE Result Comment: RESULTS CALLED TO ED 12/05/182144 Deejay Linton. REPORT READ BACK BY SAME . TEST is *POSITIVE* Performed By: #### L700.6800 #### [facility] [address] [place], [address] HCG TITER QUANT., Collected: 12/05/2018 Status: F Source: [place] SERUM 8:[address] [facility] REPOSITORY TYPE CODE TESTS RESULT OUT OF RANGE REFERENCE UNITS LAB L700.8000 <9 non-preg mIU/mL High HCG 2466 QUANT. Result Comment: RESULTS CALLED TO DR JO ED 12/05/182146 Deejay Linton. REPORT READ BACK BY SAME . Performed By: #### L700.8000 #### [facility] [address] [place], [address] CR CHEST PA/LAT Observed: 04/25/2018 Status: F Source: [facility] 11:29 AM SYSTEM REPOSITORY Patient Name: GELACIO BALDERAS Diagnostic Radiology Exam Date/Time 04/25/2018 11:20:46 EDT Exam CR Chest PA/LAT Ordering Physician MD MONTEJO ELINA Accession Number [id number] CPT4 Codes 64345 () Reason For Exam chest pain Report CLINICAL INFORMATION: Chest pain Frontal and lateral views of the chest were obtained. Comparison: August 13, 2017 No acute pulmonary disease is noted. The cardiovascular silhouette is within normal limits. There are no pleural effusions. Visualized bony thorax appears grossly intact. IMPRESSION: No acute pulmonary disease. Report Dictated on Workstation: [id number] Final Dictated: 04/25/2018 11:29 am Dictating Physician: BRANDON CASTELAN Signed Date and Time: 04/25/2018 11:29 am Signed by: BRANDON CASTELAN Transcribed Date and Time: 04/25/2018 11:29 LIPID PANEL Collected: 01/15/2018 Status: F Source: [facility] 1:32 PM SYSTEM REPOSITORY TYPE CODE TESTS RESULT OUT OF RANGE REFERENCE UNITS LAB 3CHOL < 200 mg/dL Cholesterol 156 LAB 3TRIG <150 mg/dL Triglyceride 108 LAB HDLC 40-60 mg/dL Low HDL Cholesterol 31 LAB LDL4 <100 mg/dL Low Density Abnormal Lipoprotein 103 LAB CHLHD Chol/HDL 5 Result Comment: Ref Range: < 3 Low Risk for CHD 3-6 Mod Risk for CHD > 6 High Risk for CHD Performed By: #### LIPD2, HA1C2, B12, HIV4 #### The performing lab is in the report. HEMOGLOBIN A1C Collected: 01/15/2018 Status: F Source: [facility] 1:32 PM SYSTEM REPOSITORY TYPE CODE TESTS RESULT OUT OF REFERENCE UNITS RANGE LAB A1C2 4.0-5.7 % High Hemoglobin A1C 6.0 Result Comment: --HgbA1C levels may not be accurate in patients who have renal disease, received recent blood transfusions, are anemic, or who have dyshemoglobinemia. LAB EAG2 mg/dL Estimated Avg Glucose 126 Performed By: #### LIPD2, HA1C2, B12, HIV4 #### The performing lab is in the report. VITAMIN B12 Collected: 01/15/2018 Status: F Source: [facility] 1:32 PM SYSTEM REPOSITORY TYPE CODE TESTS RESULT OUT OF REFERENCE UNITS RANGE LAB B12 239-931 pg/mL Vitamin B12 301 Performed By: #### LIPD2, HA1C2, B12, HIV4 #### The performing lab is in the report. HIV 1,2 AB; P24 Collected: 01/15/2018 Status: F Source: [facility] 1:32 PM SYSTEM REPOSITORY TYPE CODE TESTS RESULT OUT OF REFERENCE UNITS RANGE LAB HIVA Nonreactive NONREACTIVE HIV 1,2 Ab; p24 Ag Result Comment: Results obtained using the FDA cleared 4th generation HIV test. This test detects antibodies to HIV1, HIV2, HIV Group O, and the presence of the HIV-1 p24 antigen. A Non-Reactive re- sult indicates the patient is negative for both HIV antibody and HIV p24 antigen. All reactive results will undergo reflex confirmation testing at an additional charge. Performed By: #### LIPD2, HA1C2, B12, HIV4 #### The performing lab is in the report. VITAMIN B1,WHOLE Collected: 01/15/2018 Status: F Source: [facility] BLOOD 1:32 PM SYSTEM REPOSITORY TYPE CODE TESTS RESULT OUT OF REFERENCE UNITS RANGE LAB WBB1R 70-180 nmol/L Vitamin 121 B1,Whole Blood Result Comment: INTERPRETIVE INFORMATION: Vitamin B1, Whole Blood This assay measures the concentration of thiamine diphosphate (TDP), the primary active form of vitamin B1. Approximately 90 percent of vitamin B1 present in whole blood is TDP. Thiamine and thiamine monophosphate, which comprise the remaining 10 percent, are not measured. Test developed and characteristics determined by [facility]. See Compliance Statement B: [employer] Performed by [facility], [address] [place] [id number] [email or web address], Dion Gold MD - Lab. Director Performed By: #### WBHayden VB6P5 #### The performing lab is in the report. VITAMIN B6 Collected: 01/15/2018 Status: F Source: [facility] 1:32 PM SYSTEM REPOSITORY TYPE CODE TESTS RESULT OUT OF REFERENCE UNITS RANGE LAB B6P5P 2.1-21.7 ng/mL Vitamin B6 8.3 Result Comment: No toxic level for Vit B6 has been established. In addition to Vit B6 deficiency, low blood levels can occur when specimen is not protected from light. Photo degradation can be detected after as little as five minutes of light exposure. Performed by: [employer], [place], [place]. Performed By: #### WBB1O, VB6P5 #### The performing lab is in the report. ALLERGIES ALLERGIES DATE TYPE / CODE NAME / CODE REACTION SEVERITY SOURCE 12/05/2018 Drug No Known Unknown [place] [facility] Allergy/4160 Allergies/F00 [facility] 58395(SNOMED 2143504(RXNOR Repository CT) M) ENCOUNTERS ENCOUNTERS ADMIT/DISCHARGE ACCOUNT NUMBER ADMITTING ENCOUNTER LOCATION SOURCE CLASS 12/06/2018 [id number] Emergency [facility] ERRoom: System [id number]: Repository [id number] 12/05/2018/12/05/19 [id number] Emergency [place] Stephanie 19 [facility] ding:ED Repository 04/25/2018 [id number] Ambulatory [facility] Repository 04/04/2018 [id number] Ambulatory [facility] Repository 01/15/2018 [id number] Ambulatory [facility] Repository PAYERS PAYERS ENCOUNTER GUARANTOR PAYER SUBSCRIBER SOURCE 12/06/2018 [facility] SanganDOB: Insurance:BuckeyePoli SangdhanDOB: System E cy Number: Effective [id number] Repository [address] Date: [address] [address]Ksy: () 12/05/2018 [facility] [place] [id number] Insurance:MEDICAL SANGDHANDOB: [id number] [address], Number: .[place]ository [place] [address]Yck: Date:[id number]) [address]SI: 12/05/2018 Secondary NOT GIVENUNK [place] Insurance:SELF PAY [facility] Number: Effective Repository Date:2018-12-05 04/25/2018 [facility] SanganDOB: Insurance:BuckeyePoli SangdhanDOB: System E cy Number: Effective [id number] Repository [address] Date: [address] [address]Wfm: () 04/04/2018 [facility] SangdhanDOB: Insurance:BuckeyePoli SangdhanDOB: System E cy Number: Effective [id number] Repository [place] Date: [address] [address]Apz: () [facility]/15/2018 [facility]: System [id number] E cy Number: Effective [id number] Repository Timmy Back Date: [address] [address]Ebm: ()
== END 2018-12-05 23:49 | disposition home or self-care (01) ==
PROVIDERS: Emergency Provider Emergency Medicine
DX: O46.90 Antepartum hemorrhage, unspecified, unspecified trimester (principal); O09.529 Supervision of elderly multigravida, unspecified trimester; Z3A.00 Weeks of gestation of pregnancy not specified
CPT/HCPCS: 76817; 80048; 84702; 84703; 85025; 86900; 96361; 96374; 96375; 99285; J7030; A4216; J2405